=== PATIENT | male | born 1960 | race Caucasian/White ===

== ENCOUNTER 2018-11-20 06:04 | Day surgery (SDC) | payer BC ==
[2018-11-20] MEDS ORDERED: PROPOFOL 100 ML (08:15)
== END 2018-11-20 14:07 | disposition home or self-care (01) ==
LOC: GIL 06:04
DX: D12.5 Benign neoplasm of sigmoid colon (principal); D12.0 Benign neoplasm of cecum; D12.7 Benign neoplasm of rectosigmoid junction; K64.8 Other hemorrhoids; Z87.891 Personal history of nicotine dependence
CPT/HCPCS: 45380; 88305